=== PATIENT | male | born 1940 | race Caucasian/White ===

== ENCOUNTER → 2021-01-18 | Outpatient (CLI) | payer MEDICARE, BC | LOC: MRI 09:41 → CT 11:30 | DX: H53.2 Diplopia (principal); N39.0 Urinary tract infection, site not specified; Q61.02 Congenital multiple renal cysts; G31.9 Degenerative disease of nervous system, unspecified; R93.0 Abnormal findings on diagnostic imaging of skull and head, not elsewhere classified | CPT/HCPCS: 70551; Q9967 ==

== ENCOUNTER → 2021-02-01 | Outpatient (CLI) | payer MEDICARE, BC ==
[2021-02-08 10:16] LABS: ACHR MODULATING ANTIBODIES <12 % (0-20)
== END ==
LOC: LAB 01-29 13:42
DX: G70.01 Myasthenia gravis with (acute) exacerbation (principal); H53.2 Diplopia; E53.8 Deficiency of other specified B group vitamins
CPT/HCPCS: 36415; 82607; 82746; 83519; 84443